=== PATIENT | female | born 1970 | race Two or more races ===

== ENCOUNTER 2018-09-26 07:22 | Outpatient (CLI) | payer OTHER | END 2018-09-26 07:32 | disposition home or self-care (01) | LOC: NUCLEAR 07:22 | DX: M25.50 Pain in unspecified joint (principal) | CPT/HCPCS: 78315; A9503 ==

== ENCOUNTER 2018-12-18 11:46 | Emergency (ER) | payer OTHER ==
[~2018-12-18] VITALS: Ht 167.6 cm; Wt 78.0 kg
[2018-12-18] MEDS ORDERED: PRISTIQ ER100 MG PO (11:59)
== END 2018-12-18 13:23 | disposition home or self-care (01) ==
LOC: ER 11:46
DX: M54.5 Low back pain (principal)